=== PATIENT | male | born 1995 | race Caucasian/White ===

== ENCOUNTER → 2022-05-02 16:02 | Outpatient (CLI) | payer OTHER, SELFPAY ==
[2022-05-02 17:50] LABS: Urine N gonorrhoeae NOT DETECTED
[2022-05-02 18:20] LABS: Urine Chlamydia NOT DETECTED
== END ==
PROVIDERS: Visit Provider Registered Nurse
DX: R00.2 Palpitations (principal)
CPT/HCPCS: 87491; 87591